=== PATIENT | male | born 1950 | race Caucasian/White ===

== ENCOUNTER 2019-06-25 06:28 | Day surgery (SDC) | payer OTHER ==
[2019-06-25] MEDS ORDERED: PROPOFOL 40 ML (07:48)
[2019-06-25] MEDS ORDERED: LIDOCAINE 2% (SDV) 5 ML INJ (07:48)
== END 2019-06-25 09:57 | disposition home or self-care (01) ==
LOC: GIL 06:28
DX: K44.9 Diaphragmatic hernia without obstruction or gangrene (principal); K29.00 Acute gastritis without bleeding; I10 Essential (primary) hypertension; E03.9 Hypothyroidism, unspecified; E11.9 Type 2 diabetes mellitus without complications; J44.9 Chronic obstructive pulmonary disease, unspecified
CPT/HCPCS: 43239; 82962; 88305; 88312